=== PATIENT | female | born 1955 | race Caucasian/White ===

== ENCOUNTER 2024-12-17 19:26 | Emergency (ER) | payer MEDICARE ==
[~2024-12-17] VITALS: Ht 167.6 cm; Wt 63.5 kg
[2024-12-17] MEDS: IV NS 0.9% 500 ML BAG IV ONE (19:46)
[2024-12-17 20:10] LABS: PLATELET COUNT (AUTO) 180 K/uL (150-450); RED BLOOD CELL COUNT(AUTO) 3.18 MIL/uL (4.0-5.2); RED CELL DISTRIBUTION WIDTH 12.6 % (11.5-15.0); WHITE BLOOD COUNT (AUTO) 4.4 K/uL (4.3-11.0)
[2024-12-17 20:20] LABS: INR 0.97 (0.91-1.10)
[2024-12-17 20:24] LABS: CALCIUM, SERUM 8.0 mg/dL (8.5-10.1); CREATININE 1.0 mg/dL (0.6-1.3); SERUM AMMONIA 25 umol/L (11-32); SODIUM SERUM 140 mmol/L (136-145); UREA NITROGEN, BLOOD 30 mg/dL (7-18)
[2024-12-17 20:31] LABS: ALCOHOL, BLOOD 10 mg/dL (0-10); ASPARTATE AMINOTRANSFERASE 25 U/L (15-37); TOTAL PROTEIN, SERUM 5.8 g/dL (6.4-8.2)
[2024-12-17] MEDS ORDERED: FERR-56 PO (20:50)
[2024-12-17 21:11] VITALS: BP 115/61; TEMP 98; O2SAT 97
== END 2024-12-17 21:13 | disposition home or self-care (01) ==
LOC: ER 19:31
DX: S00.83XA Contusion of other part of head, initial encounter (principal); E86.0 Dehydration; D64.9 Anemia, unspecified; E03.9 Hypothyroidism, unspecified; G25.0 Essential tremor; R53.83 Other fatigue; X58.XXXA Exposure to other specified factors, initial encounter; Y93.89 Activity, other specified; Y92.89 Other specified places as the place of occurrence of the external cause; Y99.8 Other external cause status
CPT/HCPCS: 36415; 70450-TC; 70486-TC; 71045-TC; 80048-TC; 80076-TC; 82140-TC; 82962-TC; 84443-TC; 85025-TC; 85730-TC; G0480